=== PATIENT | female | born 1980 | race African-American/Black ===

== ENCOUNTER 2023-06-30 11:34 | Emergency (ER) | payer MEDICAID ==
[~2023-06-30] VITALS: Ht 160 cm; Wt 72.7 kg
[2023-06-30 11:39] VITALS: TEMP 98.3
[2023-06-30 15:11] LABS: COVID AG,FIA SOURCE NASAL SWAB
[2023-06-30 15:32] LABS: INFLUENZA TYPE A NEGATIVE FOR TYPE A (NEGATIVE); SARS-COV2 (COVID) ANTIGEN,FIA Negative (Negative)
[2023-06-30 15:44] LABS: INFLUENZA TYPE B POSITIVE FOR TYPE B (NEGATIVE)
[2023-06-30] MEDS ORDERED: OSEL75 PO (16:06)
[2023-06-30 16:22] VITALS: BP 132/74; PULSE 80; RESP 18
[2023-06-30] MEDS ORDERED: ACETAMINOPHEN 325 MG TABLET PO ONE (17:00)
== END 2023-06-30 17:24 | disposition home or self-care (01) ==
LOC: EMS 11:34
DX: J10.1 Influenza due to other identified influenza virus with other respiratory manifestations (principal); Z20.822 Contact with and (suspected) exposure to COVID-19
CPT/HCPCS: 87804; 99283